=== PATIENT | male | born 1960 | race Caucasian/White ===

== ENCOUNTER 2018-03-28 01:42 | Emergency (ER) | payer SELFPAY ==
[2018-03-28 01:43] VITALS: BP 127/95
[2018-03-28] MEDS ORDERED: ONDANSETRON 4 MG ODT TABDP SL ONE (01:50)
--- NOTE | 2018-03-28 01:54 | ER Report ---
History and Physical Time Seen By MD: 01:44 HPI/ROS CHIEF COMPLAINT: I'm homeless HISTORY OF PRESENT ILLNESS: PT brought in by police for clearance for the residential center. Pt found drunk wondering [place] the [place]. Pt denies any trauma or falling. Pt admits to drinking tonight. Pt denies taking any other medication. Pt is supposed to be on medication for anxiety and bursitis but states he does not have it. Pt states he is not from [place] and has no place to go. Pt states "im wondering'. Pt denies any pain accept in shoulders since his arms have been in handcuffs. Pt does state he feels nauseated. Pt denies abd pain. no diarrhea. REVIEW OF SYSTEMS: Constitutional: No fever, no chills. Past ENT: No sore throat. Cardiovascular: No chest pain, no palpitations. Respiratory: No cough, no shortness of breath. Gastrointestinal: No abdominal pain, + nausea, No vomiting. Musculoskeletal: No back pain. Skin: No rashes. Neurological: No headache. Psych: not suicidal or homicidal Allergies: Coded Allergies: No Known Drug Allergies (Unverified , 03/28/18) Home Meds No Active Prescriptions or Reported Meds Past Medical/Surgical History Pmhx: anxiety, bursitis, alcohol abuse Reviewed Nurses Notes: Yes Old Medical Records Reviewed: No (no old labs) Hx Smoking: Yes Hx Alcohol Use: Yes Constitutional Vital Sign - Last 24 Hours 03/28/18 01:43 Temp 97.4 Pulse 99 Resp 20 B/P (MAP) 127/95 Pulse Ox 92 O2 Delivery Room Air Physical Exam General Appearance: The patient is alert, has no immediate need for airway protection Eyes: Pupils equal and round no pallor or injection, EOMI ENT: no pharyngeal erythema or exudates, Mucous membranes are moist, TM are nl b/l, no hemotympanums Respiratory: There are no retractions, lungs are clear to auscultation. Cardiovascular: Regular rate and rhythm. pulses are equal and symmetrical Gastrointestinal: Abdomen is soft and non tender, bowel sounds normal, no guarding, no rigidity or rebound Neurological: Cranial nerves II-XII grossly intact, no sensory or motor loss Skin: Warm and dry, no rashes. Musculoskeletal: Neck is supple non tender, no vertebral tenderness upper Extremities are in handcuffs behind pts back so unable to test range of motion but are not swollen; lower extremities have full range of motion DIFFERENTIAL DIAGNOSIS: After history and physical exam differential diagnosis was considered for alcohol intoxication, alcohol abuse, homeless, bursitis Medical Decision Making ED Course/Re-evaluation ED Course physical exam and blood sugar check. PT given zofran. Pt sent to residential center. Told to return for any concerns that develop. Decision to Disposition Date: Mar 28, 2018 Decision to Disposition Time: 02:02 Depart Departure Latest Vital Signs Vital Signs Date Time Temp Pulse Resp B/P (MAP) Pulse Ox O2 Delivery O2 Flow Rate FiO2 03/28/18 01:43 97.4 99 20 127/95 92 Room Air Impression: Primary Impression: Homeless Additional Impression: Alcohol intoxication Condition: Improved Disposition: [facility] TO [facility] New Scripts No Active Prescriptions or Reported Meds Patient Instructions: Alcohol Intoxication (ED) Additional Instructions: Return for any concerns. I have provided you with the number and address for [facility]. Problem Qualifiers Additional Impression: Alcohol intoxication Complication of substance-induced condition: with unspecified complication Qualified Codes: F10.929 - Alcohol use, unspecified with intoxication, unspecified KESHIA LUO DO Mar 28, 2018 01:54
== END 2018-03-28 01:59 ==
LOC: ER 01:48
DX: F10.929 Alcohol use, unspecified with intoxication, unspecified (principal); Z59.0 Homelessness
CPT/HCPCS: 36416; 82948; 99282; S0119